=== PATIENT | male | born 1970 | race Caucasian/White ===

== ENCOUNTER → 2016-08-19 | Outpatient (CLI) | payer OTHER ==
[~2016-08-19] MED LIST: IBUP-1114 PO
[2016-08-19 11:00] LABS: BASO # 0.1 K/mm3 (0.0-0.2); BASO % 0.9 % (0.0-1.0); EOS # 0.1 K/mm3 (0.0-0.50); EOS % 1.5 % (0.0-3.0); LYMPH # 2.1 K/mm3 (1.5-4.5); LYMPH % 27.4 % (24.0-44.0); MEAN CORPUSCULAR HEMOGLOBIN 31.6 pg (27.0-33.0); MEAN CORPUSCULAR HGB CONC 33.8 g/dl (32.0-36.5); MEAN CORPUSCULAR VOLUME 93.6 fl (80.0-96.0); MONO # 0.4 K/mm3 (0.0-0.8); MONO % 5.8 % (0.0-5.0); NEUTROPHILS # 4.4 K/mm3 (1.8-7.7); NEUTROPHILS % 62.6 % (36.0-66.0)
[2016-08-19 11:23] LABS: HEPATITIS B SURFACE ANTIBODY NEGATIVE (POSITIVE)
[2016-08-19 11:24] LABS: VITAMIN B12 LEVEL 482 PG/ML
[2016-08-19 11:26] LABS: ALBUMIN 4.1 GM/DL (3.2-5.2); ALBUMIN/GLOBULIN RATIO 1.17 (1.00-1.93); ALKALINE PHOSPHATASE 73 U/L (45-117); ALT/SGPT 31 U/L (12-78); ANION GAP 7 MEQ/L (8-16); AST/SGOT 22 U/L (15-37); BILIRUBIN,TOTAL 0.4 MG/DL (0.2-1.0); BLOOD UREA NITROGEN 13 MG/DL (7-18); CALCIUM LEVEL 8.9 MG/DL (8.5-10.1); CARBON DIOXIDE LEVEL 26 MEQ/L (21-32); CHLORIDE LEVEL 107 MEQ/L (98-107); CREATININE FOR GFR 0.78 MG/DL (0.70-1.30); FERRITIN 69 NG/ML (26-388); GLOMERULAR FILTRATION RATE > 60.0 (>60); GLUCOSE, FASTING 102 MG/DL (70-105); POTASSIUM SERUM 4.2 MEQ/L (3.5-5.1); SODIUM LEVEL 140 MEQ/L (136-145); TOTAL PROTEIN 7.6 GM/DL (6.4-8.2)
== END ==
LOC: M LAB 10:05
PROVIDERS: ATTEND Physician Assistant Medical
DX: B18.2 Chronic viral hepatitis C (principal); R53.83 Other fatigue

== ENCOUNTER → 2016-08-29 | Outpatient (CLI) | payer OTHER ==
[~2016-08-29] MED LIST changes: +GASTROGRAFIN SOLUTION 30ML (Q9963) As Ordered ONE; +ISOVUE-370 76% 100ML VIAL (Q9967) As Ordered ONE
--- NOTE | 2016-08-29 17:02 | REP ---
CT abdomen pelvis multiphasic scanning: There are no comparison studies. Scanning is initially performed without IV contrast through the liver. This is followed by IV contrast enhanced scanning from the diaphragms to the pubic symphysis. This is followed by delayed equilibrium phase scanning through the liver. Bowel contrast is utilized on all phases. The visualized lung domínguez demonstrate no nodules or masses. There is linear scarring in the right middle lobe and left lower lobe. The hepatic parenchyma is homogeneous on all phases of the study. There is no CT evidence of hepatic metastatic disease. The gallbladder, pancreas and spleen are normal size, homogeneous and unremarkable. The adrenals are unremarkable. The kidneys are unremarkable. The abdominal aorta is unremarkable. There is no periaortic adenopathy. There is no mesenteric adenopathy. There is no bowel distension. Pelvis: There is no ascites or adenopathy. There is a focal zone of nonspecific bowel wall thickening in the rectosigmoid colon. Neoplasm versus artifact from stool or artifact from inflammation are some diagnostic considerations. There is no bowel obstruction or distension. The bladder is unremarkable. Impression: CT is insensitive in identifying colonic masses. However, there is a focal area of colonic wall thickening in the rectosigmoid colon, nonspecific, artifact from peristalsis or stool versus colonic wall inflammation vs neoplasm. I would recommend colonoscopy for follow up evaluation. There is no adenopathy or ascites. There is no evidence of hepatic metastatic disease. No bowel distension or obstruction. Otherwise, negative CT of the abdomen and pelvis. Signed by Marcelo Ambriz MD 08/29/2016 04:54 P
== END ==
LOC: M RAD 14:34
PROVIDERS: ATTEND Physician Assistant Medical
DX: K62.5 Hemorrhage of anus and rectum (principal)
CPT/HCPCS: 74178; Q9963; Q9967

== ENCOUNTER → 2016-10-03 | Outpatient (CLI) | payer OTHER ==
[~2016-10-03] VITALS: Ht 177.8 cm; Wt 62.1 kg
[~2016-10-03] MED LIST changes: +ASPI1TAB PO; -GASTROGRAFIN SOLUTION 30ML (Q9963) As Ordered ONE; -ISOVUE-370 76% 100ML VIAL (Q9967) As Ordered ONE; +LIDOCAINE 2% INJ 100 MG/5 ML SDV (FOR ANES.) As Ordered ONE; +NS 1,000 ML IV ONE; +PROPOFOL 200 MG/20 ML VIAL As Ordered ONE; +VITA100037 PO; +ZANTTAB9 PO
--- NOTE | 2016-10-03 14:55 | ROOR ---
Patient Name: Reid Whitehead Procedure Date: 10/03/2016 2:40 PM Date of : 1970 Age: 46 Room: [facility] Gender: Male Note Status: Finalized Procedure: Upper GI endoscopy Indications: Heartburn Providers: Celso MASON MD Referring MD: TAI VIRGEN Tanja [facility] TAI Pires Requesting Provider: Medicines: Monitored Anesthesia Care Complications: No immediate complications. Procedure: Pre-Anesthesia Assessment: - The heart rate, respiratory rate, oxygen saturations, blood pressure, adequacy of pulmonary ventilation, and response to care were monitored throughout the procedure. The Endoscope was introduced through the mouth, and advanced to the third part of duodenum. The upper GI endoscopy was accomplished without difficulty. The patient tolerated the procedure well. Findings: The examined esophagus was normal. Diffuse mild inflammation was found in the entire examined stomach. Biopsies were taken with a cold forceps for Helicobacter pylori testing. A mild post-ulcer deformity was found in the duodenal bulb. One non-bleeding superficial duodenal ulcer with no stigmata of bleeding was found in the first portion of the duodenum. The lesion was 6 mm in largest dimension. Impression: - Normal esophagus. - Chronic gastritis. Biopsied. - Duodenal deformity likely related to previous ulcer diseease. Also one small shallow non-bleeding duodenal ulcer. Recommendation: - Use Prilosec (omeprazole) 40 mg PO daily. - Telephone endoscopist for pathology results in 2 weeks. Celso Mason MD Celso MASON MD 10/03/2016 2:54:28 PM This report has been signed electronically. Number of Addenda: 0 Note Initiated On: 10/03/2016 2:40 PM Estimated Blood Loss: Estimated blood loss: none.
--- NOTE | 2016-10-03 15:15 | ROOR ---
Patient Name: Reid Whitehead Procedure Date: 10/03/2016 2:42 PM Date of : 1970 Age: 46 Room: [facility] Gender: Male Note Status: Finalized Procedure: Colonoscopy Indications: Abnormal CT of the GI tract Providers: Celso MASON MD Referring MD: TAI VIRGEN Tanja [facility] TAI Pires Requesting Provider: Medicines: Monitored Anesthesia Care Complications: No immediate complications. Procedure: Pre-Anesthesia Assessment: - The heart rate, respiratory rate, oxygen saturations, blood pressure, adequacy of pulmonary ventilation, and response to care were monitored throughout the procedure. The Colonoscope was introduced through the anus and advanced to the cecum, identified by appendiceal orifice and ileocecal valve. The colonoscopy was performed without difficulty. The patient tolerated the procedure well. The quality of the bowel preparation was fair. Findings: The perianal and digital rectal examinations were normal. Internal hemorrhoids were found during retroflexion. The hemorrhoids were medium-sized. Multiple small-mouthed diverticula were found in the sigmoid colon and descending colon. The colon (entire examined portion) was redundant. (EXAM: Complete, PREP: Fair/Adequate) Impression: - Preparation of the colon was fair. - Moderate Internal hemorrhoids and mild diverticulosis in the sigmoid and descending colon. - Long/Redundant colon. - The colon is otherwise normal. - No specimens collected. Recommendation: - Repeat colonoscopy in 5 years for screening purposes. (suboptimal prep) Celso Mason MD Celso MASON MD 10/03/2016 3:14:57 PM This report has been signed electronically. Number of Addenda: 0 Note Initiated On: 10/03/2016 2:42 PM Estimated Blood Loss: Estimated blood loss: none.
[2016-10-03 15:45] VITALS: BP 136/79
== END ==
LOC: M OPP 13:24
PROVIDERS: ATTEND Internal Medicine Gastroenterology
DX: R93.3 Abnormal findings on diagnostic imaging of other parts of digestive tract (principal); K62.5 Hemorrhage of anus and rectum; K64.8 Other hemorrhoids; K57.30 Diverticulosis of large intestine without perforation or abscess without bleeding; Q43.8 Other specified congenital malformations of intestine; R12 Heartburn; K29.50 Unspecified chronic gastritis without bleeding; K31.89 Other diseases of stomach and duodenum; K26.9 Duodenal ulcer, unspecified as acute or chronic, without hemorrhage or perforation; B18.2 Chronic viral hepatitis C; M54.5 Low back pain; K21.9 Gastro-esophageal reflux disease without esophagitis; Z80.9 Family history of malignant neoplasm, unspecified; F17.210 Nicotine dependence, cigarettes, uncomplicated; F12.20 Cannabis dependence, uncomplicated; Z79.82 Long term (current) use of aspirin; Z79.899 Other long term (current) drug therapy

== ENCOUNTER 2017-06-13 07:53 | Emergency (ER) | payer OTHER ==
[2017-06-13 08:31] LABS: BASO # 0.1 10^3/uL (0.0-0.2); BASO % 1.1 % (0.0-1.0); EOS # 0.1 10^3/uL (0.0-0.50); EOS % 0.6 % (0.0-3.0); HEMATOCRIT 38.1 % (42.0-52.0); IMMATURE GRANULOCYTE % 0.4 % (0-0); LYMPH # 1.2 10^3/uL (1.5-4.5); LYMPH % 10.9 % (24.0-44.0); MEAN CORPUSCULAR HEMOGLOBIN 32.6 pg (27.0-33.0); MEAN CORPUSCULAR HGB CONC 34.1 g/dl (32.0-36.5); MEAN CORPUSCULAR VOLUME 95.5 fl (80.0-96.0); MONO # 0.6 10^3/uL (0.0-0.8); MONO % 4.9 % (0.0-5.0); NEUTROPHILS # 9.3 10^3/uL (1.8-7.7); NEUTROPHILS % 82.1 % (36.0-66.0); PLATELET COUNT, AUTOMATED 259 10^3/uL (150-450); RED BLOOD COUNT 3.99 10^6/uL (4.30-6.10); RED CELL DISTRIBUTION WIDTH 12.4 % (11.5-14.5); WHITE BLOOD COUNT 11.4 10^3/uL (4.0-10.0)
[2017-06-13 08:43] LABS: ALBUMIN 3.6 GM/DL (3.2-5.2); ALBUMIN/GLOBULIN RATIO 1.03 (1.00-1.93); ALKALINE PHOSPHATASE 81 U/L (45-117); ALT/SGPT 29 U/L (12-78); ANION GAP 6 MEQ/L (8-16); AST/SGOT 27 U/L (7-37); BILIRUBIN,TOTAL 0.3 MG/DL (0.2-1.0); BLOOD UREA NITROGEN 10 MG/DL (7-18); CALCIUM LEVEL 8.2 MG/DL (8.5-10.1); CARBON DIOXIDE LEVEL 25 MEQ/L (21-32); CHLORIDE LEVEL 110 MEQ/L (98-107); GLOMERULAR FILTRATION RATE > 60.0 (>60); GLUCOSE, FASTING 111 MG/DL (70-105); POTASSIUM SERUM 4.1 MEQ/L (3.5-5.1); SODIUM LEVEL 141 MEQ/L (136-145); TOTAL PROTEIN 7.1 GM/DL (6.4-8.2)
[2017-06-13] MEDS: NS 1,000 ML IV (08:48)
[2017-06-13] MEDS: KETOROLAC 30 MG/ML VIAL (J1885) IV (08:48)
[2017-06-13 09:32] LABS: KETONE, URINE AUTO RFX TRACE mg/dL (NEGATIVE); LEUKOCYTE ESTERASE UR AUTO RFX NEGATIVE (NEGATIVE); MUCUS, URINE RFX SMALL (NEGATIVE); NITRITE, URINE AUTO RFX NEGATIVE (NEGATIVE); RBC, URINE AUTO RFX 157 /HPF (0-3); SPECIFIC GRAVITY UR AUTO RFX 1.025 (1.002-1.035); SQUAM EPITHELIAL CELL UR AURFX 0 /HPF (0-6); WBC, URINE AUTO RFX 1 /HPF (0-3)
== END 2017-06-13 10:11 | disposition home or self-care (01) ==
LOC: M ED 07:53
DX: N20.2 Calculus of kidney with calculus of ureter (principal); B18.2 Chronic viral hepatitis C; M54.5 Low back pain; G89.29 Other chronic pain; Z87.19 Personal history of other diseases of the digestive system; Z98.890 Other specified postprocedural states
CPT/HCPCS: J1885

== ENCOUNTER 2017-12-22 16:35 | Emergency (ER) | payer OTHER | END 2017-12-22 19:39 | disposition home or self-care (01) | LOC: M ED 19:39 | DX: S00.93XA Contusion of unspecified part of head, initial encounter (principal); S10.93XA Contusion of unspecified part of neck, initial encounter; S06.0X0A Concussion without loss of consciousness, initial encounter; W20.8XXA Other cause of strike by thrown, projected or falling object, initial encounter; Y92.098 Other place in other non-institutional residence as the place of occurrence of the external cause; R11.0 Nausea; M54.5 Low back pain; B19.20 Unspecified viral hepatitis C without hepatic coma; F17.210 Nicotine dependence, cigarettes, uncomplicated | CPT/HCPCS: 70450 ==

== ENCOUNTER 2019-05-23 16:21 | Emergency (ER) | payer OTHER ==
[~2019-05-23] VITALS: Ht 177.8 cm; Wt 64.3 kg
[~2019-05-23 16:21] MED LIST changes: -ASPI1TAB PO; +ASPI81TA26 PO; +FLOM0.4C39 PO; +KETO10TAB PO; -LIDOCAINE 2% INJ 100 MG/5 ML SDV (FOR ANES.) As Ordered ONE; -NS 1,000 ML IV ONE; -PROPOFOL 200 MG/20 ML VIAL As Ordered ONE; -VITA100037 PO; +VITA100067 PO
[2019-05-23] MEDS ORDERED: MULTCAP PO (16:27)
[2019-05-23 17:16] LABS: INFLUENZA A AMPLIFICATION NEGATIVE (NEGATIVE); INFLUENZA B AMPLIFICATION NEGATIVE (NEGATIVE)
[2019-05-23] MEDS ORDERED: ACETAMINOPHEN 325 MG TAB PO ONE (20:15)
[2019-05-23] MEDS ORDERED: ONDANSETRON 4 MG ORAL DISINTEGRATING TAB (Q0162 PER 1MG) PO ONE (20:15)
[2019-05-23] MEDS ORDERED: IBUPROFEN 600 MG TAB PO ONE (20:15)
[2019-05-23 20:30] LABS: HEMOGLOBIN 14.1 g/dl (13.5-17.5); MEAN CORPUSCULAR HEMOGLOBIN 32.8 pg (27.0-33.0); MEAN CORPUSCULAR HGB CONC 33.6 g/dl (32.0-36.5); MEAN CORPUSCULAR VOLUME 97.7 fl (80.0-96.0); PLATELET COUNT, AUTOMATED 186 10^3/uL (150-450); WHITE BLOOD COUNT 16.7 10^3/uL (4.0-10.0)
[2019-05-23 20:55] LABS: ALBUMIN 3.5 GM/DL (3.2-5.2); ALT/SGPT 81 U/L (12-78); BILIRUBIN,DIRECT 0.4 MG/DL (0.0-0.2); BILIRUBIN,TOTAL 0.9 MG/DL (0.2-1.0); TOTAL PROTEIN 7.6 GM/DL (6.4-8.2)
[2019-05-23 21:03] LABS: ATYPICAL LYMPH 12 % (0-5); LYMPHOCYTES 9 % (16-44); MONOCYTES 1 % (0-5); NEUTROPHILS 71 % (28-66); PLATELET ESTIMATE NORMAL (NORMAL)
[2019-05-23] MEDS ORDERED: NS 1,000 ML IV ONE (21:30)
[2019-05-23] MEDS ORDERED: ISOVUE-370 76% 100ML VIAL (Q9967) As Ordered ONE (21:44)
[2019-05-23 21:54] LABS: MONO REFLEX EBV COMP NEGATIVE (NEGATIVE)
--- NOTE | 2019-05-23 23:35 | REPVR ---
PROCEDURE INFORMATION: Exam: CT Lumbar Spine Without Contrast Exam date and time: 05/23/2019 10:48 PM Age: 49 years old Clinical indication: Pain; Other: Tender; Additional info: PT tender, HX iv drug use TECHNIQUE: Imaging protocol: Computed tomography images of the lumbar spine without contrast. Radiation optimization: All CT scans at this facility use at least one of these dose optimization techniques: automated exposure control; mA and/or kV adjustment per patient size (includes targeted exams where dose is matched to clinical indication); or iterative reconstruction. COMPARISON: No relevant prior studies available. FINDINGS: Vertebrae: No acute fracture. Normal alignment. Discs/Spinal canal/Neural foramina: No spinal stenosis. No neural foraminal narrowing. Liver: The liver attenuation is 58 Hounsfield units and the spleen is 118 Hounsfield units. Soft tissues: Unremarkable. IMPRESSION: 1. Fatty infiltration of the liver. 2. Negative CT lumbar spine. No discitis/osteomyelitis and no spinal or foraminal stenosis. Electronically signed by: Jose Francisco Torres On 05/23/2019 23:35:29 PM
--- NOTE | 2019-05-23 23:42 | REPVR ---
PROCEDURE INFORMATION: Exam: CT Abdomen And Pelvis With Contrast Exam date and time: 05/23/2019 10:48 PM Age: 49 years old Clinical indication: Abdominal pain; Flank; Other: Both; Additional info: PT tender, HX iv drug use, flank pain, elev wbc TECHNIQUE: Imaging protocol: Computed tomography of the abdomen and pelvis with intravenous contrast. Radiation optimization: All CT scans at this facility use at least one of these dose optimization techniques: automated exposure control; mA and/or kV adjustment per patient size (includes targeted exams where dose is matched to clinical indication); or iterative reconstruction. Contrast material: ISOVUE 370; Contrast volume: 100 ml; Contrast route: IV; COMPARISON: CT ABD PELVIS W/O FOL BY WIT 08/29/2016 4:00 PM FINDINGS: Lungs: Minimal bibasilar fibro-atelectatic change. Liver: The liver at mid clavicular line measures 17.0 cm. The liver attenuation is 72 Hounsfield units and the spleen is 128 Hounsfield units. Gallbladder and bile ducts: Normal. No calcified stones. No ductal dilation. Pancreas: Normal. No ductal dilation. Spleen: Normal. No splenomegaly. Adrenals: Normal. No mass. Kidneys and ureters: Minimal nonobstructing right renal calculi. Stomach and bowel: Unremarkable. No obstruction. No mucosal thickening. Appendix: Partial visualization of a normal appendix. Intraperitoneal space: Unremarkable. No free air. No significant fluid collection. Vasculature: Low SMA/aortic angle with prominent narrowing of left renal vein with proximal distention but no significant collateralization. There is mild calcification of the abdominal aorta with extension into the iliac arteries. Lymph nodes: Unremarkable. No enlarged lymph nodes. Bladder: There is bladder wall thickening, however, the bladder is nondistended and is nonspecific. Reproductive: Unremarkable as visualized. Bones/joints: Unremarkable. No acute fracture. Soft tissues: Unremarkable. IMPRESSION: 1. Mild hepatomegaly with fatty infiltration. 2. Minimal nonobstructing right renal calculi. 3. Low SMA/aortic angle with prominent narrowing of the left renal vein and proximal distention which may be seen with nutcracker phenomenon, however, there is no significant collateralization and is unchanged from 08/29/2016. 4. There is bladder wall thickening, however, the bladder is nondistended and is nonspecific. Electronically signed by: Jose Francisco Torres On 05/23/2019 23:42:40 PM
[2019-05-24] MEDS ORDERED: AZITHROMYCIN 250 MG TAB PO ONE (00:15)
[2019-05-24] MEDS ORDERED: ONDA4TAB6 PO (00:17)
[2019-05-24] MEDS ORDERED: AZIT-12 PO (00:17)
[2019-05-24 00:39] VITALS: BP 127/74
--- NOTE | 2019-05-24 07:59 | REP ---
Clinical: Cough . Comparison: 12/22/2014 . Technique: PA and lateral. Findings: The mediastinum and cardiac silhouette are normal. The lung domínguez are clear and without acute consolidation, effusion, or pneumothorax. The skeletal structures are intact and normal. Impression: 1. No acute cardiopulmonary process. Electronically Signed by Fransico Hernandez MD 05/24/2019 07:40 A
--- NOTE | 2019-05-24 08:49 | ED PDOC ---
Post-Departure Follow-Up dr flores faxed formal report of ct abd/p for fu Kylee Clemente MD May 24, 2019 08:49
[2019-05-28 00:06] LABS: EBV AB TO NUCLEAR ANTIGEN 90.4 U/mL (0.0-17.9); EBV VIRAL CAPSID AG IgG 25.3 U/mL (0.0-17.9); EBV VIRAL CAPSID AG IgM <36.0 U/mL (0.0-35.9)
== END 2019-05-24 00:45 | disposition home or self-care (01) ==
LOC: M ED 16:21
DX: R11.2 Nausea with vomiting, unspecified (principal); R05 Cough; D72.829 Elevated white blood cell count, unspecified; B18.2 Chronic viral hepatitis C; M54.9 Dorsalgia, unspecified; F17.218 Nicotine dependence, cigarettes, with other nicotine-induced disorders
CPT/HCPCS: 71046; 72131; 74177; 80047; 80076; 81001; 85025; 86308; 86663; 86664; 86665; 87040; 87502; 96360; 99284; Q0162; Q9967

== ENCOUNTER → 2020-09-25 | Outpatient (CLI) | payer OTHER ==
[~2020-09-25] MED LIST changes: +AZIT-12 PO; +MULTCAP PO; +ONDA4TAB6 PO
--- NOTE | 2020-09-25 16:34 | REP ---
INDICATION: PAIN IN KNEE NECK. COMPARISON: None. TECHNIQUE: Three views of the right shoulder were performed. FINDINGS: The acromioclavicular and glenohumeral relationships are within normal limits. There is no acute fracture or destructive osseous lesion. IMPRESSION: Within normal limits <Electronically signed by Kris Colon > 09/25/20 [id number]
--- NOTE | 2020-09-25 16:35 | REP ---
INDICATION: PAIN IN KNEE NECK COMPARISON: None TECHNIQUE: Multiple views each knee FINDINGS: Minimal marginal osteophyte formation is seen lateral compartment left knee and articular surface inferior pole patella left knee. The examination is otherwise unremarkable. IMPRESSION: Early degenerative changes left knee as described above <Electronically signed by Kris Colon > 09/25/20 [id number]
--- NOTE | 2020-09-25 16:36 | REP ---
INDICATION: PAIN IN KNEE NECK. COMPARISON: 01/28/2015. TECHNIQUE: Seven views cervical spine performed including flexion and extension lateral views as well as oblique views. FINDINGS: No compression fracture or malalignment. There is normal cervical lordosis. There is no prevertebral soft tissue swelling. The disc spaces are well preserved. There is no subluxation. There is no radiographic evidence of significant neural foraminal narrowing. IMPRESSION: Essentially negative cervical spine series. <Electronically signed by Marcelo Sherman > 09/25/20 [id number]
== END ==
LOC: M ADAMS 15:40
PROVIDERS: ATTEND Physician Assistant Medical
DX: R20.2 Paresthesia of skin (principal); M54.2 Cervicalgia; M25.511 Pain in right shoulder; B18.2 Chronic viral hepatitis C; M25.562 Pain in left knee

== ENCOUNTER → 2020-09-28 | Outpatient (REF) | payer OTHER ==
[2020-09-28 16:52] LABS: BASO # 0.1 10^3/uL (0.0-0.2); BASO % 1.6 % (0.0-1.0); EOS # 0.2 10^3/uL (0.0-0.5); EOS % 2.5 % (0.0-3.0); HEMATOCRIT 42.1 % (42.0-52.0); HEMOGLOBIN 14.2 g/dl (13.5-17.5); LYMPH # 2.1 10^3/uL (1.5-5.0); LYMPH % 31.5 % (24.0-44.0); MEAN CORPUSCULAR HEMOGLOBIN 32.1 pg (27.0-33.0); MEAN CORPUSCULAR HGB CONC 33.7 g/dl (32.0-36.5); MEAN CORPUSCULAR VOLUME 95.2 fl (80.0-96.0); MONO # 0.7 10^3/uL (0.0-0.8); NEUTROPHILS # 3.6 10^3/uL (1.5-8.5); NEUTROPHILS % 54.1 % (36.0-66.0); PLATELET COUNT, AUTOMATED 283 10^3/uL (150-450); RED BLOOD COUNT 4.42 10^6/uL (4.30-6.10); WHITE BLOOD COUNT 6.7 10^3/uL (4.0-10.0)
[2020-09-28 17:01] LABS: INR 1.09; PROTHROMBIN TIME 14.3 SECONDS (12.5-14.3)
[2020-09-28 17:26] LABS: ALBUMIN 3.4 GM/DL (3.2-5.2); ALT/SGPT 85 U/L (12-78); BILIRUBIN,TOTAL 0.3 MG/DL (0.2-1.0); BLOOD UREA NITROGEN 10 MG/DL (7-18); CALCIUM LEVEL 8.7 MG/DL (8.5-10.1); CARBON DIOXIDE LEVEL 28 MEQ/L (21-32); CHLORIDE LEVEL 109 MEQ/L (98-107); CHOLESTEROL LEVEL 159 MG/DL (<200); CREATININE FOR GFR 0.69 MG/DL (0.70-1.30); FREE T4 1.07 NG/DL (0.76-1.46); GLOMERULAR FILTRATION RATE > 60.0 (>56); GLUCOSE, FASTING 88 MG/DL (70-100); HDL CHOLESTEROL 55 MG/DL (>40); LDL CHOLESTEROL 69 MG/DL (<100); NON-HDL-C 104 MG/DL; POTASSIUM SERUM 4.3 MEQ/L (3.5-5.1); RHEUMATOID FACTOR QUANT < 10.0 IU/ML (<15.0); SODIUM LEVEL 142 MEQ/L (136-145); THYROID STIMULATING HORMONE 0.942 uIU/ML (0.358-3.740); TOTAL 25(OH) VITAMIN D 15.2 NG/ML (30.0-100.0); TRIGLYCERIDES LEVEL 174 MG/DL (<150); URIC ACID 3.9 MG/DL (3.5-7.2)
[2020-09-28 18:00] LABS: ERYTHROCYTE SEDIMENTATION RATE 16 mm/hr (0-20)
[2020-09-28 18:06] LABS: HIV 1&2 SCREEN CENTAUR NEGATIVE (NEGATIVE)
== END ==
LOC: M SFHCADAM 14:32
PROVIDERS: ATTEND Physician Assistant Medical
DX: B18.2 Chronic viral hepatitis C (principal); K21.9 Gastro-esophageal reflux disease without esophagitis; Z13.0 Encounter for screening for diseases of the blood and blood-forming organs and certain disorders involving the immune mechanism; Z13.220 Encounter for screening for lipoid disorders; M54.2 Cervicalgia; M25.561 Pain in right knee; M25.562 Pain in left knee; R19.5 Other fecal abnormalities

== ENCOUNTER → 2020-10-02 | Outpatient (CLI) | payer OTHER ==
--- NOTE | 2020-10-02 08:25 | REP ---
INDICATION: CHRONIC HEP C COMPARISON: 03/12/2015 TECHNIQUE: Real time subramanian scale ultrasound examination using curved array transducer. FINDINGS: Liver is normal in contour, size, and echogenicity without focal hepatic lesions identified. Pancreas is incompletely evaluated due to interposed bowel gas. The gallbladder is normal and without gallstones, wall thickening, or pericholecystic fluid. No biliary ductal dilatation is appreciated and the common bile duct measures 5.5 mm diameter. Right kidney is normal in reniform shape without hydronephrosis and measures 11.9 x 6.3 x 4.4 cm. No ascites in the visualized right upper quadrant. IMPRESSION: Normal limited right upper quadrant ultrasound <Electronically signed by Fransico Hernandez > 10/02/20 [id number]
== END ==
LOC: M RAD 07:35
PROVIDERS: ATTEND Physician Assistant Medical
DX: B18.2 Chronic viral hepatitis C (principal)

== ENCOUNTER → 2023-09-14 | Outpatient (CLI) | payer SELFPAY | LOC: M OUTALCOH 07:27 | PROVIDERS: ATTEND Psychiatry & Neurology Psychiatry | DX: F12.10 Cannabis abuse, uncomplicated (principal); F17.200 Nicotine dependence, unspecified, uncomplicated ==

== ENCOUNTER 2023-09-25 09:42 | Outpatient (RCR) | payer SELFPAY | END 2023-09-26 | LOC: M OUTALCOH 09:42 | PROVIDERS: ATTEND Psychiatry & Neurology Psychiatry | DX: F12.10 Cannabis abuse, uncomplicated (principal); F17.200 Nicotine dependence, unspecified, uncomplicated ==

== ENCOUNTER → 2023-10-27 | Outpatient (RCR) | payer SELFPAY | LOC: M OUTALCOH 10-06 13:44 | PROVIDERS: ATTEND Psychiatry & Neurology Psychiatry | DX: F15.20 Other stimulant dependence, uncomplicated (principal); F12.10 Cannabis abuse, uncomplicated; F17.200 Nicotine dependence, unspecified, uncomplicated ==

== ENCOUNTER 2023-11-24 13:48 | Outpatient (RCR) | payer SELFPAY ==
[~2023-11-24 13:48] MED LIST changes: +ONDA-282 PO; -ONDA4TAB6 PO
== END 2023-11-26 ==
LOC: M OUTALCOH 13:48
PROVIDERS: ATTEND Psychiatry & Neurology Psychiatry
DX: F15.20 Other stimulant dependence, uncomplicated (principal); F12.10 Cannabis abuse, uncomplicated; F17.200 Nicotine dependence, unspecified, uncomplicated

== ENCOUNTER 2023-12-26 09:41 | Outpatient (RCR) | payer SELFPAY | END 2023-12-27 | LOC: M OUTALCOH 09:41 | PROVIDERS: ATTEND Psychiatry & Neurology Child & Adolescent Psychiatry | DX: F15.20 Other stimulant dependence, uncomplicated (principal); F12.10 Cannabis abuse, uncomplicated; F17.200 Nicotine dependence, unspecified, uncomplicated ==

== ENCOUNTER 2024-01-12 14:00 | Outpatient (RCR) | payer SELFPAY | END 2024-01-27 | LOC: M OUTALCOH 14:00 | PROVIDERS: ATTEND Psychiatry & Neurology Psychiatry | DX: F15.20 Other stimulant dependence, uncomplicated (principal); F12.10 Cannabis abuse, uncomplicated; F17.200 Nicotine dependence, unspecified, uncomplicated ==